=== PATIENT | female | born 1950 | race Caucasian/White ===

== ENCOUNTER 2019-11-02 07:22 | Day surgery (SDC) | payer MEDICARE, BC ==
[~2019-11-02] VITALS: Ht 177.8 cm; Wt 78.9 kg
--- NOTE | 2019-11-02 09:42 | NUR ---
11/02/19 0942 Christine Jose 0801 PT ARRIVED IN PACU WIDE AWAKE WITH NO C/O'S. ABD SOFT. 0900 DR AT BEDSIDE TALKING WITH PT. 0915 PT GETTING DRESSED AND SIPPING ON WATER. 924 DC INSTRUCTIONS GIVEN. ALL QUESTIONS ANSWERED. LEFT VIA W/C.
--- NOTE | 2019-11-03 10:41 | PATH ---
[facility] [address] [place], [place] [address] Signed SPECIMEN(S): A RECTAL POLYP SPECIMEN SOURCE: A. RECTAL POLYP CLINICAL HISTORY: Colonoscopy. History of polyp, hemorrhoids. Postop: Hyperplastic polyp, diverticulosis. MICROSCOPIC DESCRIPTION: Histologic sections of all submitted blocks are examined by light microscopy. These findings, together with the gross examination, support the pathologic diagnosis. FINAL PATHOLOGIC DIAGNOSIS: Rectum, polyp, polypectomy: - Fragments of rectal mucosa with no histopathologic abnormality. - Negative for dysplasia or malignancy. COMMENT: Two of the mucosal fragments contain mucosal lymphoid aggregates, which may be seen as polypoid lesions during colonoscopy. NAL:cml:C2NR GROSS DESCRIPTION: The specimen, labeled "CB, 1," and designated on the requisition "rectal polyp," is received in formalin and consists of five batres soft tissue fragments that measure 0.4 cm in greatest dimension. The specimen is entirely submitted in cassette (A1). Note: Smallest fragment is minute and may not survive processing. AT (under the direct supervision of a pathologist) The Gross Description was prepared using a voice recognition system. The report was reviewed for accuracy; however, sound-alike word errors, addition and/or deletions may occur. If there is any question about this report, please contact Client Services. PERFORMING LABORATORY: The technical component was performed by [facility], [address] [place] [id number] (Stamping Bench Die Maker: Tran Leon MD; CLIA# [id number]). [facility], [address] [address] (CLIA# [id number]). PATIENT NAME: CHRISTIAN LEES PATHOLOGY DATE OF : 50 REPORT #: [id number] PHYSICIAN: ALISHA PATHOLOGY PCP: SHAKIR MARIE REPORT IS CONFIDENTIAL AND NOT TO BE RELEASED WITHOUT AUTHORIZATION [address] [address] Signed Diagnostician: Katarzyna Orellana MD Pathologist Electronically Signed 11/03/2019 Copies: ~ PATIENT NAME: CHRISTIAN LEES PATHOLOGY DATE OF : 50 REPORT #: [id number] PHYSICIAN: ALISHA PATHOLOGY PCP: SHAKIR MARIE REPORT IS CONFIDENTIAL AND NOT TO BE RELEASED WITHOUT AUTHORIZATION
--- NOTE | 2019-11-03 18:52 | OR ---
[facility] [address] [place], [place] [address] Signed DATE OF OPERATION: 11/02/2019 SURGEON: Joe Alvarez MD PREOPERATIVE DIAGNOSES: History of tubular adenoma and hyperplastic polyps in 2016. POSTOPERATIVE DIAGNOSES: 1. Sigmoid and left-sided diverticulosis. 2. Hyperplastic-appearing polyps of rectosigmoid (excised). PROCEDURE: Total colonoscopy to cecum with cold morcellation polypectomy x2. ANESTHESIA: Intravenous sedation, fentanyl 100 mcg and Versed 2.5 mg. INDICATION: This 69-year-old white woman is a patient of MIGUEL Martinez. She has a history of tubular adenoma of the right colon and hyperplastic polyps elsewhere, which were excised in 2016. She is symptom free currently. She is admitted at this time to undergo colonoscopy. She understands the risks of bleeding, infection, and perforation. FINDINGS: The prep was excellent. Complete colonoscopy was undertaken to the cecum without question. She had numerous diverticula of the sigmoid and left colon, all of them reasonably small. There were 2 small hyperplastic polyps close to each other in the rectosigmoid, both excised completely. There were no other findings of concern. PROCEDURE IN DETAIL: The patient was brought to the endoscopy suite and placed in lateral decubitus position and given intravenous sedation to the point of slurred speech and nystagmus. Digital rectal examination was normal. Full cardiopulmonary monitoring was maintained. An Olympus video colonoscope was passed in the rectum and manipulated throughout the colon noting diverticular changes of sigmoid and left colon. Scope was ultimately advanced to the cecum with good visualization of the ileocecal valve and appendiceal orifice. The scope was withdrawn from that point and careful inspection showed no sign of abnormality other than diverticula of the left colon and sigmoid until the rectosigmoid, where 2 small hyperplastic polyps were noted. Narrow band imaging confirmed that likelihood. Both were excised with cold morcellation technique. The scope was further withdrawn. Electronically Signed By: JOE ALVAREZ MD 11/03/19 1852 PATIENT NAME: CHRISTIAN LEES OPERATIVE REPORT DATE OF : 50 REPORT #: [id number] PHYSICIAN: JOE ALVAREZ MD PCP: SHAKIR MARIE REPORT IS CONFIDENTIAL AND NOT TO BE RELEASED WITHOUT AUTHORIZATION [facility] [address] [place] [id number] Signed Retroflexed view was undertaken, which was normal. Scope was removed and the patient taken to recovery room in good condition. CONCLUDING DIAGNOSES: 1. Hyperplastic polyps x2, rectosigmoid, excised. 2. Diverticulosis. PLAN: Recommend repeat colonoscopy in 5 years or sooner if clinically indicated. She will return to the ongoing care of MIGUEL Martinez. MD YO Navas/JOHNNY /[id number] cc: MIGUEL Martinez Copies: SHAKIR MARIE ~ Electronically Signed By: JOE ALVAREZ MD 11/03/19 1852 PATIENT NAME: CHRISTIAN LEES OPERATIVE REPORT DATE OF : 50 REPORT #: [id number] PHYSICIAN: JOE ALVAREZ MD PCP: SHAKIR MARIE REPORT IS CONFIDENTIAL AND NOT TO BE RELEASED WITHOUT AUTHORIZATION
== END 2019-11-02 09:25 | disposition home or self-care (01) ==
LOC: DS 07:22 → OPS 07:22 → DS 08:30 → OPS 09:25
PROVIDERS: Surgery
PROC: 0DBN8ZZ Excision of Sigmoid Colon, Via Natural or Artificial Opening Endoscopic (ICD-10-PCS; principal; 2019-11-02 08:30)
DX: Z12.11 Encounter for screening for malignant neoplasm of colon (principal); K63.5 Polyp of colon; K57.30 Diverticulosis of large intestine without perforation or abscess without bleeding; Z86.010 Personal history of colon polyps
CPT/HCPCS: 99153; G0500; J2250; J3010

== ENCOUNTER 2023-10-13 14:08 | Emergency (ER) | payer MEDICARE, BC ==
[~2023-10-13] VITALS: Ht 177.8 cm; Wt 83.9 kg
[2023-10-13 15:00] VITALS: BP 185/90
== END 2023-10-13 15:00 | disposition home or self-care (01) ==
LOC: ED 14:08
DX: S61.411A Laceration without foreign body of right hand, initial encounter (principal); W25.XXXA Contact with sharp glass, initial encounter; Z88.0 Allergy status to penicillin
CPT/HCPCS: 12001; 99282-25